=== PATIENT | female | born 1995 | race Caucasian/White ===

== ENCOUNTER 2023-02-04 20:26 | Emergency (ER) | payer SELFPAY ==
[~2023-02-04] VITALS: Ht 154.9 cm; Wt 122.5 kg
[2023-02-04 21:28] VITALS: BP 132/85
[2023-02-04 21:48] LABS: BASO % 0.2 % (0.0-1.0); EOS # 0.2 10*3/uL (0.0-0.4); EOS % 1.4 % (1.0-4.0); HEMATOCRIT 47.8 % (37.0-47.0); LYMPH # 2.2 10*3/uL (1.3-4.4); LYMPH % 18.1 % (27.0-41.0); MEAN CELL VOLUME 83.3 fl (81.0-99.0); MEAN CORPUSCULAR HGB 26.8 pg (27.0-31.0); MEAN CORPUSCULAR HGB CONC 32.2 g/dl (33.0-37.0); MEAN PLATELET VOLUME 8.6 fl (9.6-12.3); MONO # 0.7 10*3/uL (0.1-1.0); MONO % 6.2 % (3.0-9.0); NEUT # 8.7 10*3/uL (2.3-7.9); NEUT % 73.8 % (47.0-73.0); PLATELET COUNT AUTOMATED 309 10*3/uL (130-400); RED BLOOD COUNT 5.74 10*6/uL (4.10-5.10); RED CELL DISTRI WIDTH 14.5 % (0-14.5); WHITE BLOOD COUNT 11.9 10*3/uL (4.8-10.8)
[2023-02-04 22:10] LABS: ALKALINE PHOSPHATASE 75 U/L (46-116); BUN 10 mg/dl (9-23); CHLORIDE 108 mmol/L (98-107); POTASSIUM 3.8 mmol/L (3.4-5.1); SGPT/ALT 14 U/L (5-49); TOTAL PROTEIN 7.3 gm/dL (6.0-8.0)
[2023-02-04] MEDS ORDERED: PREDNISONE50 MG PO (22:57)
[2023-02-04] MEDS ORDERED: ZITHROMAX250 MG PO (22:57)
== END 2023-02-04 23:07 | disposition home or self-care (01) ==
LOC: ED 20:26
PROVIDERS: Nurse Practitioner Family
DX: J40 Bronchitis, not specified as acute or chronic (principal); R51.9 Headache, unspecified; Z90.89 Acquired absence of other organs; R19.7 Diarrhea, unspecified; Z20.822 Contact with and (suspected) exposure to COVID-19

== ENCOUNTER 2024-07-28 01:03 | Emergency (ER) | payer SELFPAY ==
[~2024-07-28 01:03] MED LIST: PREDNISONE50 MG PO; ZITHROMAX250 MG PO
[2024-07-28 01:12] VITALS: BP 116/68
[2024-07-28] MEDS ORDERED: CLINDAMYCIN HC300 MG PO (01:26)
[2024-07-28] MEDS ORDERED: TYLE3UD PO (01:26)
[2024-07-28] MEDS ORDERED: Acetaminophen/Codeine Phosph #3 PO ONE (01:30)
[2024-07-28] MEDS ORDERED: CLINDAMYCIN HCL 300 MG CAPSULE PO ONE (01:30)
[2024-07-28] MEDS ORDERED: traMADol Hydrochloride 50 MG TAB PO ONE (01:40)
== END 2024-07-28 02:05 | disposition home or self-care (01) ==
LOC: ED 01:03
DX: K02.9 Dental caries, unspecified (principal); Z79.899 Other long term (current) drug therapy

== ENCOUNTER 2024-08-06 12:49 | Emergency (ER) | payer SELFPAY ==
[~2024-08-06] VITALS: Ht 154.9 cm; Wt 79.9 kg
[~2024-08-06 12:49] MED LIST changes: +CLINDAMYCIN HC300 MG PO; +TYLE3UD PO
[2024-08-06 12:58] VITALS: BP 112/71
[2024-08-06] MEDS ORDERED: diphenhydrAMINE hydrochloride 50 MG/ML VIAL IM ONE (13:15)
[2024-08-06] MEDS ORDERED: methylPREDNISolone sod succ 125 MG VIAL IM ONE (13:15)
[2024-08-06] MEDS ORDERED: Amoxicillin/Clavulanate Pota 875 MG TAB PO ONE ×2 (13:30)
[2024-08-06] MEDS ORDERED: AMOX-CLAV 875-1 EACH PO (13:30)
== END 2024-08-06 13:36 | disposition home or self-care (01) ==
LOC: ED 12:49
DX: L50.9 Urticaria, unspecified (principal); T36.8X5A Adverse effect of other systemic antibiotics, initial encounter; Z79.899 Other long term (current) drug therapy; Z88.1 Allergy status to other antibiotic agents; Z90.89 Acquired absence of other organs; Y92.89 Other specified places as the place of occurrence of the external cause